=== PATIENT | female | born 1965 | race Caucasian/White ===

== ENCOUNTER 2024-02-22 17:07 | Emergency (ER) | payer BC ==
[2024-02-22] MEDS: Labetalol 20 MG/4 ML Syringe IVPUSH ONE (17:34)
[2024-02-22] MEDS: LORazepam 2 MG/ML SDV IVPUSH ONE (17:48)
[2024-02-22 18:17] LABS: BASOPHILS PERCENT AUTO 0.6 % (0.2-1.5); BLOOD UREA NITROGEN,BUN 7 mg/dL (7-18); BUN/CREATININE RATIO 11.7 (9-20); CALCIUM 9.6 mg/dL (8.6-10.2); CARBON DIOXIDE,CO2 29 mmol/L (21-32); CHLORIDE,CL 94 mmol/L (100-110); CREATININE 0.6 mg/dL (0.55-1.02); EOSINOPHILS ABSOLUTE AUTO 0.1 x10-3/uL (0.0-0.8); EOSINOPHILS PERCENT AUTO 1.1 % (0.6-8.1); EST CRCL DRUG DOSING (CG) 95.75 mL/min; ESTIMATED GFR 102 mL/min (>60); GLUCOSE RANDOM 119 mg/dL (80-116); HEMATOCRIT 52.3 % (34.2-48.2); HEMOGLOBIN 17.5 g/dL (11.4-15.5); LYMPHOCYTES ABSOLUTE AUTO 0.9 x10-3/uL (1.0-4.4); LYMPHOCYTES PERCENT AUTO 11.6 % (18.4-52.1); MEAN CORPUSCULAR HEMOGLOBIN 28.1 pg (23.9-33.9); MEAN CORPUSCULAR HGB CONC 33.4 g/dL (31.9-34.8); MEAN PLATELET VOLUME 7.4 fL (7.1-12.4); MONOCYTES ABSOLUTE AUTO 0.5 x10-3/uL (0.3-1.0); MONOCYTES PERCENT AUTO 6.5 % (4.4-15.7); NEUTROPHILS ABSOLUTE AUTO 6.5 x10-3/uL (1.5-6.3); NEUTROPHILS PERCENT AUTO 80.2 % (30.8-76.2); PLATELET COUNT,PLT 219 x10(3)uL (151-488); POTASSIUM,K 3.5 mmol/L (3.5-5.3); RED BLOOD CELL COUNT 6.23 x10(6)uL (3.60-5.20); RED CELL DISTRIBUTION WIDTH 15.6 % (12.3-16.5); SODIUM,NA 133 mmol/L (135-145); WHITE BLOOD CELL COUNT,WBC 8.1 x10-3/uL (3.0-10.3)
[2024-02-22 18:28] LABS: ALANINE AMINOTRANSFERASE,ALT 28 U/L (12-36); ALBUMIN 3.6 g/dL (3.2-4.6); ALKALINE PHOSPHATASE 77 IU/L (56-112); ASPARTATE AMNIOTRANSFERASE,AST 20 IU/L (5-25); BILIRUBIN TOTAL 1.2 mg/dL (0.1-1.3); PROTEIN TOTAL,TP 7.4 g/dL (6.0-8.0)
[2024-02-22 18:47] LABS: TROPONIN I 258.8 pg/mL (4.0-60.3)
[2024-02-22] MEDS: Sodium Chloride 0.9% 10 ML Syringe FLUSH PRN (19:08)
[2024-02-22] MEDS: hydrALAZINE 20 MG/ML SDV IVPUSH ONE (19:08)
[2024-02-22 19:19] LABS: INR 1.09 (1.00-1.24); PROTHROMBIN TIME 11.2 sec (9.0-11.1)
[2024-02-22] MEDS: Aspirin 81 MG Tab.Chew PO ONE (19:52)
[2024-02-22] MEDS: Furosemide 40 MG/4 ML VIAL IVPUSH ONE (19:53)
[2024-02-22] MEDS: amLODIPine 10 MG Tab PO STA (20:49)
[2024-02-22] MEDS: Heparin Sodium 5,000 Units/ML Vial IVPUSH ONE ×2 (21:55→22:24)
[2024-02-22] MEDS: Heparin Sodium/0.45% NaCl 500 ML IV SCH (22:29)
[2024-02-23] MEDS: LORazepam 2 MG/ML SDV IVPUSH ONE (07:54)
== END 2024-02-23 08:51 ==
LOC: FB.ED 17:07
DX: I16.9 Hypertensive crisis, unspecified (principal); I24.9 Acute ischemic heart disease, unspecified; E78.5 Hyperlipidemia, unspecified; J81.0 Acute pulmonary edema; I11.0 Hypertensive heart disease with heart failure; I50.9 Heart failure, unspecified; E66.9 Obesity, unspecified; F17.210 Nicotine dependence, cigarettes, uncomplicated; Z79.899 Other long term (current) drug therapy; Z68.41 Body mass index [BMI] 40.0-44.9, adult
CPT/HCPCS: 36415; 70450; 71045; 80053; 83880; 84484; 85025; 85610; 85730; 93005; 96365; 96366; 96375; 96376; 99285; A9270; J0360; J1644; J1920; J1940; J2060; J3490; 93010